=== PATIENT | female | born 1975 | race Caucasian/White ===

== ENCOUNTER 2020-08-29 21:03 | Inpatient (IN) | payer OTHER ==
[~2020-08-29] VITALS: Ht 152.4 cm; Wt 72.6 kg
[2020-08-29] MEDS ORDERED: SPRINTEC 28 DA1 EACH (21:24)
[2020-09-04] MEDS ORDERED: POLY119PG PO (06:50)
[2020-09-04] MEDS ORDERED: SIMETHICONE125 M1 PO (06:50)
[2020-09-04] MEDS ORDERED: IBUPROFEN800 MG PO (06:50)
[2020-09-04] MEDS ORDERED: NEURONTIN600 MG PO (06:50)
== END 2020-09-04 11:48 | disposition home or self-care (01) | DRG 743 ==
LOC: ER 21:03 → OB/GYN 08-30 07:32 → SEC-K 08-30 07:32 → OB/GYN 08-30 13:53
PROVIDERS: ADMIT Obstetrics & Gynecology; ATTEND Obstetrics & Gynecology
PROC: BU4CZZZ Ultrasonography of Uterus and Ovaries (ICD-10-PCS; 2020-08-29)
PROC: 30233N1 Transfusion of Nonautologous Red Blood Cells into Peripheral Vein, Percutaneous Approach (ICD-10-PCS; 2020-08-30)
PROC: 0UB50ZZ Excision of Right Fallopian Tube, Open Approach (ICD-10-PCS; 2020-09-02)
PROC: 0UT90ZZ Resection of Uterus, Open Approach (ICD-10-PCS; principal; 2020-09-02 11:00)
DX: D25.1 Intramural leiomyoma of uterus (principal); D25.2 Subserosal leiomyoma of uterus; D64.9 Anemia, unspecified; N80.0 Endometriosis of uterus; N93.9 Abnormal uterine and vaginal bleeding, unspecified; Z20.822 Contact with and (suspected) exposure to COVID-19